=== PATIENT | male | born 1970 | race American Indian/Alaskan Native ===

== ENCOUNTER 2017-12-12 09:07 | Emergency (ER) | payer OTHER ==
[2017-12-12 09:14] VITALS: BP 112/80
--- NOTE | 2017-12-12 10:31 | Emergency Department Report ---
ED Abdominal Pain HPI - General Chief Complaint: Abdominal Pain Stated Complaint: LEFT ADB PAIN Time Seen by Provider: 12/12/17 10:26 Source: patient Mode of arrival: Ambulatory Limitations: No Limitations - History of Present Illness Initial Comments: Mr. Oglesby is a healthy 47-year-old male whose left upper quadrant and left mid axillary pain for 1-2 years. Pain has gotten worse and more persistent over the last several months. He states the pain is relieved when he stands up. However when he sits down or when he stretches he feels the pain in the left lower rib cage. He has had nausea intermittently over the last several weeks. He has stopped smoking. He feels that he has mild nicotine withdrawal which is causing the nausea. No weight loss. No diarrhea. No constipation. He does not have a physician. 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 MD Complaint: abdominal pain, flank pain -: year(s) (1-2) Location: LUQ, LLQ, L flank Radiation: none Severity: mild Quality: aching Consistency: intermittent Worsens With: movement Associated Symptoms: denies other symptoms. denies: nausea, vomiting, diarrhea , fever, chills, constipation, dysuria, hematemesis, hematochezia, melena, hematuria, anorexia, syncope - Related Data Previous Rx's Medication Instructions Recorded Last Taken Type HYDROcodone/APAP 5-325 [[place] 1 each PO Q6HR PRN #12 tablet 09/15/14 Unknown Rx 5/325] Sulfamethoxazole/Trimethoprim 1 each PO Q12H #20 tablet 09/15/14 Unknown Rx [Bactrim Ds] cephALEXin [Keflex] 500 mg PO Q6H #40 capsule 09/15/14 Unknown Rx Famotidine 20 mg PO BID 30 Days #60 tablet 12/12/17 Unknown Rx Ibuprofen 400 mg PO QID #20 tablet 12/12/17 Unknown Rx Allergies Allergy/AdvReac Type Severity Reaction Status Date / Time No Known Allergies Allergy Verified 12/12/17 09:12 ED Review of Systems ROS: Stated complaint: LEFT ADB PAIN Other details as noted in HPI Comment: All other systems reviewed and negative Constitutional: denies: fever, malaise Respiratory: denies: cough ED Past Medical Hx - Past Medical History Previous Medical History?: No - Surgical History Past Surgical History?: No - Social History Smoking Status: Current Some Day Smoker Substance Use Type: None - Medications Home Medications: Home Medications Medication Instructions Recorded Confirmed Last Taken Type HYDROcodone/APAP 5-325 [[place] 1 each PO Q6HR PRN #12 tablet 09/15/14 Unknown Rx 5/325] Sulfamethoxazole/Trimethoprim 1 each PO Q12H #20 tablet 09/15/14 Unknown Rx [Bactrim Ds] cephALEXin [Keflex] 500 mg PO Q6H #40 capsule 09/15/14 Unknown Rx Famotidine 20 mg PO BID 30 Days #60 tablet 12/12/17 Unknown Rx Ibuprofen 400 mg PO QID #20 tablet 12/12/17 Unknown Rx ED Physical Exam - General Limitations: No Limitations General appearance: alert, in no apparent distress - Head Head exam: Present: atraumatic, normocephalic - Eye Eye exam: Present: normal appearance - ENT ENT exam: Present: mucous membranes moist - Neck Neck exam: Present: normal inspection. Absent: tenderness, meningismus - Respiratory Respiratory exam: Present: normal lung sounds bilaterally. Absent: respiratory distress, wheezes, rales, rhonchi - Cardiovascular Cardiovascular Exam: Present: regular rate, normal rhythm, normal heart sounds. Absent: systolic murmur, diastolic murmur, rubs, gallop - GI/Abdominal GI/Abdominal exam: Present: soft, normal bowel sounds. Absent: distended, tenderness, guarding, rebound - Rectal Rectal exam: Present: deferred - Extremities Exam Extremities exam: Present: normal inspection - Back Exam Back exam: Present: normal inspection - Neurological Exam Neurological exam: Present: alert, oriented X3 - Psychiatric Psychiatric exam: Present: normal affect, normal mood - Skin Skin exam: Present: warm, dry, intact, normal color. Absent: rash - Other Other exam information: No tenderness of back or rib cage no tenderness on palpation patient appears well and comfortable ED Course Vital Signs 12/12/17 09:12 Temperature 98.1 F Pulse Rate 89 Respiratory 16 Rate Blood Pressure 112/80 O2 Sat by Pulse 98 Oximetry ED Medical Decision Making - Medical Decision Making Mr Oglesby presents with pain at lower rib cage. Suspect muscle strain. DDX: pud, colitis, splenic sequestration due to infection, atypical for aCS I have prescribed IBUprofen and famotidine. I strongly recommended full physical exam by an water regulator and valve repairer. Referred to clinic. Critical care attestation.: If time is entered above; I have spent that time in minutes in the direct care of this critically ill patient, excluding procedure time. ED Disposition Clinical Impression: Muscle strain of chest wall Disposition: DC- TO HOME OR SELFCARE Is pt being admited?: No Does the pt Need Aspirin: No Condition: Stable Instructions: Muscle Strain (ED) Prescriptions: Famotidine 20 mg PO BID 30 Days #60 tablet Ibuprofen 400 mg PO QID #20 tablet Referrals: PRIMARY CARE, [Primary Care Provider] - 3-5 Days Time of Disposition: 10:32
== END 2017-12-12 10:49 | disposition home or self-care (01) ==
LOC: ED 09:07
DX: S29.011A Strain of muscle and tendon of front wall of thorax, initial encounter (principal); R11.0 Nausea; X58.XXXA Exposure to other specified factors, initial encounter; Y99.8 Other external cause status; Y92.89 Other specified places as the place of occurrence of the external cause
CPT/HCPCS: 99282